=== PATIENT | female | born 1980 | race Caucasian/White ===

== ENCOUNTER 2017-11-03 20:51 | Emergency (ER) | payer OTHER ==
[~2017-11-03] VITALS: Ht 162.6 cm; Wt 52.6 kg
[~2017-11-03 20:51] MED LIST: AMOX500; ASCO500 PO; ASPI325EC PO; BUPRENORPHINE HC8 MG SL; Bactrim Ds Tab1 EACH PO; ESTR2 PO; EXTRA STRENGTH500 MG PO; Flagyl250 MG PO; Flomax0.4 MG PO; HYDACE5 PO; IBUP600 PO; IBUP800 PO; IBUPROFEN200 MG; METPHE10 PO; MULVITMINE; Methylin ER10 MG; Non-Aspirin Ex500 M1 PO; Norco 5-325 Ta1 EACH PO; OXYACE5T PO; OXYC30 PO; PENVK500 PO; PROM25 PO; Percocet 5-3251 EACH PO; SULTRIDS PO; VIT; Vibramycin100 MG PO
[2017-11-03] MEDS ORDERED: Prednisone50 MG PO (22:28)
[2017-11-03] MEDS ORDERED: Naproxen250 MG PO (22:28)
[2017-11-03 22:40] LABS: Source, Urine Clean Catch
[2017-11-03 22:46] LABS: Bilirubin, Urine Neg (Neg); Blood, Urine 5+ (Neg); Glucose Qualitative, Urine Neg (Neg); Ketones, Urine Neg (Neg); Leukocyte Esterase, Urine 1+ (Neg); Nitrite, Urine Neg (Neg); Protein, Urine 1+ (Neg); Specific Gravity, Urine 1.015 (1.003-1.022); Urobilinogen, Urine NORM (Normal)
[2017-11-03 22:47] LABS: Appearance, Urine Hazy (Clear); Color, Urine Yellow (P-Yellow)
[2017-11-03 23:00] LABS: Amorphous Light (0-Heavy); Bacteria Mod /hpf; Red Blood Cells, Urine 50-100 /hpf (0-2); Squamous Epithelial Cells Few /hpf (Few)
== END 2017-11-03 23:32 | disposition home or self-care (01) ==
LOC: ER 20:51
PROVIDERS: Emergency Medicine
DX: M25.522 Pain in left elbow (principal); M25.521 Pain in right elbow; M25.512 Pain in left shoulder; M25.511 Pain in right shoulder; M25.532 Pain in left wrist; M25.531 Pain in right wrist; M25.562 Pain in left knee; M25.561 Pain in right knee; M25.572 Pain in left ankle and joints of left foot; M25.571 Pain in right ankle and joints of right foot; M25.552 Pain in left hip; M25.551 Pain in right hip; G89.29 Other chronic pain; Z88.2 Allergy status to sulfonamides; Z79.899 Other long term (current) drug therapy; F17.210 Nicotine dependence, cigarettes, uncomplicated
CPT/HCPCS: 81001; 87086; 99283